=== PATIENT | male | born 1945 | race Caucasian/White ===

== ENCOUNTER 2019-03-02 11:38 | Emergency (ER) | payer MEDICARE, OTHER ==
[~2019-03-02] VITALS: Ht 177.8 cm; Wt 79.5 kg
[2019-03-02 15:10] VITALS: BP 178/82
== END 2019-03-02 15:12 | disposition home or self-care (01) ==
LOC: ED 14:18
DX: G40.909 Epilepsy, unspecified, not intractable, without status epilepticus (principal); J44.9 Chronic obstructive pulmonary disease, unspecified; I48.91 Unspecified atrial fibrillation
CPT/HCPCS: 36415; 70450; 71045; 80053; 80307; 81003; 85025; 93005; 99284; J1953